=== PATIENT | male | born 1955 | race Caucasian/White ===

== ENCOUNTER 2016-08-22 07:50 | Day surgery (SDC) | payer BC ==
[~2016-08-22] VITALS: Ht 177.8 cm; Wt 79.4 kg
[2016-08-22] VITALS (14 sets, daily range): BP systolic 101–138; BP diastolic 57–85
[~2016-08-22 07:50] MED LIST: ASPIR 8181 MG ORAL; ATORVASTATIN CA10 MG ORAL; Bacitracin 50000 Units Vial ONE; Bupivacaine w/Epi 0.5% 30ml Vial INJ ONE; IMITREX25 MG PO
[2016-08-22] MEDS ORDERED: fentaNYL 100 mcg/2 mL IV ONE (08:00)
[2016-08-22] MEDS ORDERED: Ketorolac 30mg Inj ONE (08:00)
[2016-08-22] MEDS ORDERED: NS Irrig 1000ml ONE (08:00)
[2016-08-22] MEDS ORDERED: Sterile Water Irrig 1000ml IRRIG ONE (08:00)
[2016-08-22] MEDS ORDERED: LR 1000ml ONE (08:00)
[2016-08-22] MEDS ORDERED: Midazolam 2mg/2ml Inj ONE (08:00)
[2016-08-22] MEDS ORDERED: Propofol 10mg/ml 20ml IV ONE (08:00)
[2016-08-22] MEDS ORDERED: LR 1000ml 1,000 ML IV SCH (09:00)
--- NOTE | 2016-08-22 09:01 | Pre-Procedure Note/Attestation ---
Pre-Procedure Note/Attestation Complete Prior to Procedure Planned Procedure: right Procedure Narrative: distal biceps tendon repair Indications for Procedure Pre-Operative Diagnosis: distal biceps tendon rupture Attestation I attest that I discussed the nature of the procedure; its benefits; risks and complications; and alternatives (and the risks and benefits of such alternatives ), prior to the procedure, with the patient (or the patient's legal medical collections representative). I attest that, if there was a reasonable possibility of needing a blood transfusion, the patient (or the patient's legal medical collections representative) was given the [facility] standardized written summary, pursuant to the [employer] [place] Blood Safety Act ([place] Health and Safety Code # 1645, as amended). I attest that I re-evaluated the patient just prior to the surgery and that there has been no change in the patient's H&P, except as documented below: JAMI SIMON August 22, 2016 09:01
[2016-08-22] MEDS ORDERED: LR 1000ml 1,000 ML IVLG SCH (09:38)
--- NOTE | 2016-08-22 09:38 | Anethesia Preoperative Eval ---
Anesthesia Pre-op PMH/ROS General Date of Evaluation: August 22, 2016 Time of Evaluation: 08:45 Anesthesiologist: Jose Francisco ASA Score: ASA 2 Mallampati Score Class I : Soft palate, uvula, fauces, pillars visible Class II: Soft palate, uvula, fauces visible Class III: Soft palate, base of uvula visible Class IV: Only hard plate visible Mallampati Classification: Class II Surgeon: Yosi Diagnosis: R biceps tendon tear Surgical Procedure: Repair of R distal biceps tendon Anesthesia History: none Family History: no anesthesia problems Allergies: Coded Allergies: AMOXICILLIN (Verified Allergy, Unknown, 08/21/16) CLAVULANIC ACID (Verified Allergy, Unknown, 08/21/16) Medications: see eMAR Past Medical History Cardiovascular: Denies: CAD, HTN, ND, arrhythmia, other, valve dz Pulmonary: Denies: COPD, CHRISTA, asthma, other Gastrointestinal/Genitourinary: Reports: GERD - mild, Denies: CRI, ESRD, other Neurologic/Psychiatric: Denies: CVA, TIA, dementia, depression/anxiety, other Endocrine: Denies: DM, hypothyroidism, other, steroids [place]: Denies: [place] (L), [place] (R), cataract (L), cataract (R), glaucoma, other Hematology/Immune: Denies: DVT, anemia, bleeding disorder, other Musculoskeletal/Integumentary: Denies: DDD, DJD, OA, RA, edema, other PMH Narrative: as above PSxH Narrative: T&A Anesthesia Pre-op Phys. Exam Physician Exam Last Vital Signs Date Time Temp Pulse Resp B/P Pulse Ox O2 Delivery O2 Flow Rate FiO2 08/22/16 08:29 97.9 71 18 138/76 98 Room Air Constitutional: NAD Neurologic: CN 2-12 intact Cardiovascular: RRR, no M/R/G Respiratory: CTA Gastrointestinal: S/NT/ND Airway Exam Mallampati Score: Class II MO: full Neck: flexible ROM: full Teeth: intact Dentures: no lower, no upper Anesthesia Pre-op A/P Labs see chart Studies Pre-op Studies: EKG - NSR Risk Assessment & Plan Assessment: ASA 2 Plan: GA with LMA Status Change Before Surgery: No Pre-Antibiotics Drug: Ancef 1gr. Given Within 1 Hr of Incision: Yes Time Given: 09:18 TOI BROWN M.D. August 22, 2016 09:38
[2016-08-22] MEDS ORDERED: Meperidine 25mg/0.5ml Inj IV PRN (09:45)
[2016-08-22] MEDS ORDERED: DiphenhydrAMINE 50mg/ml Inj IVP PRN (09:45)
[2016-08-22] MEDS ORDERED: Hydromorphone 0.5mg/0.5ml inj IVP PRN (09:45)
[2016-08-22] MEDS ORDERED: Midazolam 2mg/2ml Inj IVP PRN (09:45)
--- NOTE | 2016-08-22 10:50 | Immediate Post-Op Evaluation ---
Immediate Post-Op Evalulation Immediate Post-Op Evalulation Procedure: R distal biceps tendon repair Date of Evaluation: August 22, 2016 Time of Evaluation: 10:49 IV Fluids: 800 Blood Products: none Estimated Blood Loss: min Urinary Output: none Blood Pressure Systolic: 109 Blood Pressure Diastolic: 75 Pulse Rate: 77 Respiratory Rate: 20 O2 Sat by Pulse Oximetry: 99 Temperature (Fahrenheit): 97.6 Pain Score (1-10): 2 Nausea: No Vomiting: No Complications none Patient Status: awake, patent, none Hydration Status: adequate TOI BROWN M.D. August 22, 2016 10:50
--- NOTE | 2016-08-22 13:57 | 48 Hour Post Anesthesia Eval ---
Post Anesthesia Evaluation Procedure: R distal biceps tendon repair Date of Evaluation: August 22, 2016 Time of Evaluation: 13:56 Blood Pressure Systolic: 116 0: 57 Pulse Rate: 84 Respiratory Rate: 22 Temperature (Fahrenheit): 97.6 O2 Sat by Pulse Oximetry: 98 Airway: patent Nausea: No Vomiting: No Pain Intensity: 2 Hydration Status: adequate Cardiopulmonary Status: stable Mental Status/LOC: patient returned to baseline Follow-up Care/Observations: n/a Post-Anesthesia Complications: none Follow-up care needed: ready to discharge TOI BROWN M.D. August 22, 2016 13:57
--- NOTE | 2016-08-26 22:01 | Operative Note - Dictated ---
DATE OF OPERATION: 08/22/2016 PREOPERATIVE DIAGNOSIS: Right distal biceps tendon rupture. POSTOPERATIVE DIAGNOSIS: Right distal biceps tendon rupture. SURGEON: Antonino Rivera M.D. BICYCLE FITTER: Juan Alcaraz M.D. ANESTHESIA: General endotracheal tube. INDICATIONS FOR OPERATION: This is a 61-year-old right hand dominant male with a three-four week history of right distal biceps tendon rupture. NAME OF OPERATION: Right distal biceps tendon repair using Arthrex button. ESTIMATED BLOOD LOSS: 10 mL. TOURNIQUET TIME: Zero. DESCRIPTION OF PROCEDURE IN DETAIL: The patient was brought in the operating room and identified as Dell Sarmiento. A time-out was performed. A 4 cm transverse incision was made approximately 3 cm distal to the elbow crease. Hemostasis was obtained as bleeding was encountered. Blunt dissection was carried down to the fascia. The fascia was incised in line with the skin incision. The lateral antebrachial cutaneous nerve was identified and preserved. There was a significant vein directly traversing the center of the incision. This was also preserved. The nerve was freed up sufficiently to gain access to the deep structures. A search was made for the distal biceps tendon stump. It was not obvious first due to the duration of time since the injury, but at the medial proximal end of the wound, the stump was identified and dissected free. Once this was performed, the stump was mobilized up through the biceps tendon muscle belly until adequate travel of the biceps tendon was achieved. Using an Allis clamp on the biceps tendon stump, a whipstitch was used to place 4-5 throws into the distal biceps tendon achieving excellent fixation. The end of the biceps tendon was then trimmed back to a tapered fresh end. The biceps tendon with suture was then placed into a subcutaneous position and out of the way. Next, attention was directed to establishing the path for the biceps tendon. Using blunt dissection, with the arm in extension and full supination, the biceps tuberosity was identified and its path was cleared for the tendon. It was not necessary to extend the skin incision. The speech language pathology assistant was critical in this role allowing safe retraction. The guidewire was placed into the biceps tuberosity of the radius and it was obtained to confirm the position. The pin was placed through the far cortex of the radius and images confirmed this position. The pin had been placed slightly ulnarward per the protocol. Next, the 8 mm reamer was used to drill through the biceps tuberosity. The position of the reamer was confirmed on image. Next, attention was directed back to the biceps tendon stump. The button was placed over the two suture ends per protocol. Next, the button was placed on to the pencils washer. With retractors carefully placed, the button was placed into the hole in the biceps tuberosity and through the hole on the far cortex and then deployed. This position was checked using image. Next, the sutures were gently pulled one by one per protocol to allow the biceps tendon to be sucked down into the reamed hole. This achieved excellent position. A discussion was carried out regarding use of a screw and it was felt that it was not necessary in this individual, so the interference screw was not placed. The arm was taken through a full range of motion including full extension and full pronation. The biceps tendon was quite stable and very secure. The sutures were sewn back onto the biceps tendon stump and several knots were placed. The wound was thoroughly irrigated with normal saline. The subcutaneous tissue was closed using 2-0 Vicryl. The skin was closed using a running 4-0 nylon. A sterile dressing was applied. A posterior splint was placed. The patient was awakened in the operating room in satisfactory condition. He was transferred to the recovery room. Antonino Rivera M.D. DR: AMRIK JOB#: [id number] CC: Antonino Rivera M.D.; [address] [place] [address]; [place] [address]; Fax#: [phone]
== END 2016-08-22 13:15 | disposition home or self-care (01) ==
LOC: SUR 07:50
DX: S46.211A Strain of muscle, fascia and tendon of other parts of biceps, right arm, initial encounter (principal); X50.9XXA Other and unspecified overexertion or strenuous movements or postures, initial encounter; Y93.64 Activity, baseball; Y92.320 Baseball field as the place of occurrence of the external cause; Y99.8 Other external cause status; E78.5 Hyperlipidemia, unspecified; J31.0 Chronic rhinitis; K21.9 Gastro-esophageal reflux disease without esophagitis; G43.909 Migraine, unspecified, not intractable, without status migrainosus; Z79.82 Long term (current) use of aspirin; Z88.1 Allergy status to other antibiotic agents; Z88.0 Allergy status to penicillin; Z88.8 Allergy status to other drugs, medicaments and biological substances
CPT/HCPCS: 24341; 82962; J0690; J1885; J2250; J2704; J3010; J7120; 94003; 94150; J2180